=== PATIENT | male | born 1965 | race Two or more races ===

== ENCOUNTER 2016-11-15 09:54 | Emergency (ER) | payer OTHER ==
[2016-11-15 10:00] VITALS: BP 154/82; PULSE 91; TEMP 98; BMI 27.9
[2016-11-15] MEDS ORDERED: predniSONE 20 MG TABLET (UD) PO ONE (10:42)
[2016-11-15] MEDS ORDERED: predniSONE 20 MG TABLET (UD) ONE (10:45)
--- NOTE | 2016-11-15 10:48 | PDOC ---
History of Present Illness - General Chief Complaint: Pain Stated Complaint: RT LEG PAIN Time Seen by Provider: 11/15/16 10:29 History Source: Patient Exam Limitations: No Limitations - History of Present Illness Initial Comments: 11/15/16 10:43 51 yr male history of HTN presents with low back pain radiating to right buttock and thigh started last week after getting up from his chair. Pt has had low back pain on and off the past few weeks after lifting heavy items. Pt denies abd pain neg saddle anesthesia neg numbness or tingling. Pt took motrin with some relief but not helping now. No urine or bowel complaints. Past History - Past Medical History Allergies/Adverse Reactions: Allergies Allergy/AdvReac Type Severity Reaction Status Date / Time No Known Allergies Allergy Verified 11/15/16 10:01 Home Medications: Ambulatory Orders Methylprednisolone [Medrol Dose Nicolas] 4 mg PO ASDIR #21 tablet 11/15/16 HTN: Yes Other medical history: low back pain - Psycho/Social/Smoking Cessation Hx Suicidal Ideation: No Smoking History: Never smoked Information on smoking cessation initiated: No Trauma Specific PMHX - Complaint Specific PMHX Arthritis: No Back Injury: No Neck Injury: No Hx Sacro Iliac Joint Dysfunction: No Review of Systems - Review of Systems Able to Perform ROS?: Yes Is the patient limited [place] proficient: No Constitutional: No: Symptoms Reported HEENTM: No: Symptoms Reported Respiratory: No: Symptoms reported Cardiac (ROS): No: Symptoms Reported ABD/GI: No: Symptoms Reported : No: Symptoms Reported Musculoskeletal: Yes: See HPI, Back Pain Integumentary: No: Symptoms Reported Neurological: No: Symptoms reported *Physical Exam - Vital Signs Last Vital Signs Temp Pulse Resp BP Pulse Ox 98 F 91 H 18 154/82 100 11/15/16 09:58 11/15/16 09:58 11/15/16 09:58 11/15/16 09:58 11/15/16 09:58 - Physical Exam General Appearance: Yes: Nourished, Appropriately Dressed HEENT: positive: EOMI, RAMESH Respiratory/Chest: positive: Lungs Clear, Normal Breath Sounds Cardiovascular: positive: Regular Rhythm, Regular Rate Musculoskeletal: positive: Normal Inspection, Other (right lumbar paraspinal ttp ). 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 negative: Sensory Deficit, Finger to Nose, Confused, Disoriented, Babinski Medical Decision Making - Medical Decision Making 11/15/16 10:46 cc: right leg sciatica neg saddle anesthesia neg urine or bowel dysfunction *DC/Admit/Observation/Transfer Diagnosis at time of Disposition: Sciatica of right side - Discharge Dispostion Disposition: HOME Condition at time of disposition: Good - Prescriptions Prescriptions: Methylprednisolone [Medrol Dose Nicolas] 4 mg PO ASDIR #21 tablet - Patient Instructions Additional Instructions: take the next dose of steroid tomorrow as directed warm compresses to lower back can help with pain follow with the orthopedist if pain worsens or persists Return to ER for any wrosening symptoms, numbness, tingling groin numbness, unable to urinate or have a bowel movement or any other concerns
== END 2016-11-15 10:57 | disposition home or self-care (01) ==
LOC: JERFT 09:54
DX: M54.41 Lumbago with sciatica, right side (principal); I10 Essential (primary) hypertension
CPT/HCPCS: 99281-25

== ENCOUNTER 2016-11-23 08:16 | Emergency (ER) | payer OTHER ==
[2016-11-23 08:26] VITALS: BP 142/89; PULSE 75; TEMP 98.5; BMI 27.8
[2016-11-23] MEDS ORDERED: KETOROLAC TROMETHAMINE 60 MG/2 ML VIAL ONE (09:17)
[2016-11-23] MEDS ORDERED: KETOROLAC TROMETHAMINE 60 MG/2 ML VIAL IM ONE (09:28)
--- NOTE | 2016-11-23 09:34 | PDOC ---
History of Present Illness - General Chief Complaint: Pain, Acute Stated Complaint: LEG PAIN Time Seen by Provider: 11/23/16 09:02 History Source: Patient Exam Limitations: Language Barrier - History of Present Illness Initial Comments: 11/23/16 09:38 My Chief Complaint: Right sided lower back pain radiates down rt. leg History of present illness: Patient is a 51-year-old male with a history of hypertension & scolisis here today with worsening right-sided lower back pain that radiates down his right buttocks to his right lower extremity. Patient denies any numbness of his right leg or any incontinency or any saddle anesthesia. Patient reports that pain currently is a 9 out of 10 when getting up from a seated or lying position and standing up. Patient reports that pain was less when he was on the Medrol Dosepak however has increased since finished. Patient has not been taking anything else for pain. Patient did not follow up after he was seen one week ago here as recommended to see an orthopedist. 11/23/16 16:32 Occurred: reports: other (2 weeks ago ) Severity: reports: moderate Pain Location: reports: back (radiates down rt. buttock to rt lower leg ) Method of Injury: Yes: other (geting up from a seated position 2 weeks ago) Modifying Factors: improves with: immobilization Loss of Consciousness: no loss of consciousness Past History - Past Medical History Allergies/Adverse Reactions: Allergies Allergy/AdvReac Type Severity Reaction Status Date / Time Penicillins Allergy Verified 11/23/16 08:22 Home Medications: Ambulatory Orders Naproxen [Naprosyn -] 500 mg PO BID PRN #14 tablet 11/23/16 HTN: Yes - Psycho/Social/Smoking Cessation Hx Suicidal Ideation: No Smoking History: Never smoked Hx Alcohol Use: Yes (OCCASIONALLY) Drug/Substance Use Hx: No Trauma Specific PMHX - Complaint Specific PMHX Arthritis: No Back Injury: No Neck Injury: No Hx Sacro Iliac Joint Dysfunction: No Review of Systems - Review of Systems Able to Perform ROS?: Yes Constitutional: No: Symptoms Reported HEENTM: No: Symptoms Reported Respiratory: No: Symptoms reported Cardiac (ROS): No: Symptoms Reported ABD/GI: No: Symptoms Reported : No: Symptoms Reported Musculoskeletal: Yes: Back Pain (RT. LATERAL BACK PAIN RADIATED DOWN RT. LEG TO FT) Integumentary: No: Symptoms Reported Neurological: No: Symptoms reported *Physical Exam - Vital Signs Last Vital Signs Temp Pulse Resp BP Pulse Ox 98.5 F 75 18 142/89 97 11/23/16 08:22 11/23/16 08:22 11/23/16 08:22 11/23/16 08:22 11/23/16 08:22 - Physical Exam General Appearance: Yes: Appropriately Dressed Respiratory/Chest: positive: Lungs Clear, Normal Breath Sounds. negative: Chest Tender, Respiratory Distress Cardiovascular: positive: Regular Rhythm, Regular Rate, S1, S2 Vascular Pulses: Dorsalis-Pedis (R): 4+ Musculoskeletal: positive: Normal Inspection, Other (RT. LATERAL BACK PAIN ). negative: CVA Tenderness, CVA Tenderness (R), CVA Tenderness (L), Vertebral Tenderness Extremity: positive: Normal Capillary Refill, Normal Inspection, Normal Range of Motion Neurologic: positive: Alert, Normal Response, Motor Strength 5/5 (LOWER EXTREMITIES ), Respond to painful stimul (LEGS ), Responsive, Other (NEGATIVE SLR B/L ). negative: Numbness, Sensory Deficit (B/L LEGS ) Deep Tendon Reflexes: Ankle (L): 4+, Ankle (R): 4+, Knee (L): 4+, Knee (R): 4+ ED Treatment Course - RADIOLOGY Radiology Studies Ordered: Category Date Time Status SPINE-LUMBAR SACRAL [RAD] Stat Radiology 11/23/16 09:16 Taken - Medications Given in the ED: ED Medications Discontinued Medications Generic Name Dose Route Start Last Admin Trade Name Freq PRN Reason Stop Dose Admin Ketorolac Tromethamine 60 mg 11/23/16 09:28 11/23/16 09:28 Toradol Injection - IM 11/23/16 09:29 60 mg NOW ONE Administration Medical Decision Making - Medical Decision Making 11/23/16 09:43 Patient is a 51-year-old male with a history of hypertension here today with worsening right-sided lower back pain that radiates down his right buttocks to his right lower extremity. Patient denies any numbness of his right leg or any incontinency or any saddle anesthesia. Patient reports that pain currently is a 9 out of 10 when getting up from a seated or lying position and standing up. Patient reports that pain was less when he was on the Medrol Dosepak however has increased since finished. Patient has not been taking anything else for pain. Patient did not follow up after he was seen one week ago here as recommended to see an orthopedist. rt. sided lumbar back pain with radiculopathy down rt. leg PLAN: toradol 60 mg IM xray lumbar sacral spine of lordosis. Degenerative changes with wedging. If symptoms persist further imaging orthopedist consultation may be of help per Dr. Reyna NAPROSYN 500 MG BID PRN SUNITA #14 TABS STRESSED TO PT THAT HE MUST FOLLOW UP WITH ORTHOPEDIST FOR FURTHER EVALUATION 11/23/16 09:48 11/23/16 10:13 *DC/Admit/Observation/Transfer Diagnosis at time of Disposition: Lumbar pain with radiation down right leg - Discharge Dispostion Disposition: HOME Condition at time of disposition: Stable - Prescriptions Prescriptions: Naproxen [Naprosyn -] 500 mg PO BID PRN #14 tablet PRN Reason: Pain - Referrals Referrals: STAFF,NOT ON [Primary Care Provider] - Aditya Connor MD [Staff Physician] - - Patient Instructions Additional Instructions: YOU MUST FOLLOW UP WITH ORTHOPEDIST FOR FURTHER EVALUATION AVOID ANY STRENOUS ACTIVITIES NO LIFTING RETURN TO EMERGENCY ROOM FOR WORSENING PAIN ANY NUMBNESS OF GROIN OR LEG OR ANY LOSS OF CONTROL OF URINE OR BOWEL MOVEMENTS PATIENT VOICED UNDERSTANDING OF DISCHARGE INSTRUCTIONS AND ALL QUESTIONS WERE ANSWERED - Post Discharge Activity Work/School Note: Back to Work
== END 2016-11-23 10:41 | disposition home or self-care (01) ==
LOC: JER 08:16 → JERFT 08:16
PROC: 3E0233Z Introduction of Anti-inflammatory into Muscle, Percutaneous Approach (ICD-10-PCS; principal; 2016-11-23)
DX: M54.16 Radiculopathy, lumbar region (principal); M41.80 Other forms of scoliosis, site unspecified
CPT/HCPCS: 72100-TC; 99281-25

== ENCOUNTER 2025-03-17 12:08 | Emergency (ER) | payer BC, OTHER ==
[2025-03-17 12:22] VITALS: TEMP 98.3; BMI 30.4
[2025-03-17 13:26] LABS: ABSOLUTE IMMATURE GRANULOCYTES 0.02 x10^3/uL (0.0-0.031); BASOPHILS # 0.03 x10^3/uL (0.01-0.08); EOSINOPHIL % 2.4 % (0.8-7.0); EOSINOPHILS # 0.19 x10^3/uL (0.04-0.54); MCHC 32.8 g/dl (32.3-36.5); MEAN CELL VOLUME 94.0 fl (79.0-92.2); MEAN PLT VOLUME 11.0 fl (9.4-12.4); MONOCYTE # 0.56 x10^3/uL (0.30-0.82); MONOCYTE % 7.1 % (5.3-12.2); RDW 12.5 % (12.2-16.4)
[2025-03-17 13:51] LABS: CO2 29.0 mmol/L (21-32); GLUCOSE,RANDOM 91.0 mg/dL (74-106)
[2025-03-17 13:54] LABS: SGOT/AST 27.0 U/L (15-37); SGPT/ALT 27.0 U/L (13-61)
[2025-03-17 13:55] LABS: CREATININE 0.8 mg/dL (0.55-1.3)
[2025-03-17 13:56] LABS: TOT PROT 7.3 g/dl (6.4-8.2)
[2025-03-17 13:57] LABS: ALK PHOS 63.0 U/L (45-117)
[2025-03-17 16:01] VITALS: BP 141/82; PULSE 98; RESP 20
[2025-03-17 23:36] LABS: HIV INTERPRETATION NEGATIVE (NEGATIVE)
[2025-03-18 20:46] LABS: HCV DIAGNOSTIC IN-HOUSE W/RFLX NON-REACTIVE (NONREACTIVE)
== END 2025-03-17 16:20 | disposition home or self-care (01) ==
LOC: JER 12:08
DX: R00.2 Palpitations (principal); R20.0 Anesthesia of skin
CPT/HCPCS: 36415; 71045-TC-FY; 80053; 83735; 84484; 85025; 86803; 87389; 93005; 93010; 99285-25